=== PATIENT | male | born 1955 | race Caucasian/White ===

== ENCOUNTER → 2019-10-14 | Day surgery (SDC) | payer MEDICARE ==
[~2019-10-14] VITALS: Ht 175.3 cm; Wt 80.7 kg
[~2019-10-14] MED LIST: CALCIUM600 M1 PO; COQ10200 MG PO; FISH OIL1 CAP PO; GINGKO BILOBA PO; MAGNESIUM500 M1 PO; MELOXICAM7.5 MG PO; METFORMIN500 MG PO; MIRALAX3350 N1 PO; MULTI 501 PO; PERCOCET 5/325M1 TAB PO; PRAVASTATIN20 MG PO; PROBIOTI2 PO; VITAMIN B-COMPL1 TAB PO; VITAMIN B12 PO; VITAMIN D35000 UNIT PO
[2019-10-14 09:56] VITALS: BP 143/60
== END | disposition home or self-care (01) ==
LOC: ORM 07:10
PROVIDERS: ATTEND Surgery
PROC: 0WQF0ZZ Repair Abdominal Wall, Open Approach (ICD-10-PCS; principal; 2019-10-14)
DX: K42.0 Umbilical hernia with obstruction, without gangrene (principal); E11.9 Type 2 diabetes mellitus without complications
CPT/HCPCS: J0131; J1100; J2710

== ENCOUNTER 2021-06-19 08:14 | Day surgery (SDC) | payer MEDICARE ==
[~2021-06-19 08:14] MED LIST changes: +ALPHA LIPOIC A200 M1 PO; +IRON (FERROUS S50 MG PO; +TURMERIC500 MG PO; +ZINC50 M1 PO
[2021-06-19] MEDS ORDERED: PERCOCET 5/325M1 TAB PO (10:41)
[2021-06-19 11:24] VITALS: BP 133/71
== END 2021-06-19 12:01 | disposition home or self-care (01) ==
LOC: ORM 08:14
PROVIDERS: ATTEND Surgery
PROC: 0WUF0JZ Supplement Abdominal Wall with Synthetic Substitute, Open Approach (ICD-10-PCS; principal; 2021-06-19)
DX: K43.2 Incisional hernia without obstruction or gangrene (principal); E11.9 Type 2 diabetes mellitus without complications; Z79.84 Long term (current) use of oral hypoglycemic drugs
CPT/HCPCS: J0131; J2710